=== PATIENT | male | born 1965 | race African-American/Black ===

== ENCOUNTER 2019-07-09 06:46 | Day surgery (SDC) | payer MEDICARE ==
[2019-07-06 11:14] LABS: HEMATOCRIT 44.2 % (42.0-54.0); HEMOGLOBIN 14.6 g/dL (13.5-17.5); MCH 29.4 pg (26.0-34.0); MCV 89.1 fL (80.0-100.0); MEAN PLATELET VOLUME 10.5 fL (7.4-10.4); RBC 4.96 10x6/uL (4.20-6.10); RDW 14.3 % (11.5-14.5); WBC 3.7 10x3/uL (4.8-10.8)
[~2019-07-09] VITALS: Ht 182.9 cm; Wt 107.0 kg
[~2019-07-09 06:46] MED LIST: BACLOFEN10 MG PO; CELEBREX 100 M100 MG PO; MOBIC7.5 MG PO; NORVASC10 MG PO
[2019-07-09 06:54] VITALS: BP 123/83; Ht 182.9 cm; Wt 107.0 kg
[2019-07-09] MEDS ORDERED: HYDROCODON-ACE1 EA10 PO (10:19)
--- NOTE | 2019-07-09 11:45 | NUR ---
PATIENT AMBULATING AROUND ROOM WITHOUT DIZZINESS OR UNSTEADINESS. DISCHARGE INSTRUCTIONS REVIEWED WITH PATIENT, DISCHARGED VIA WHEELCHAIR TO PRIVATE VEHICLE WITH [employer]
--- NOTE | 2019-07-11 08:08 | OP ---
PATIENT NAME: ABE ROSA MEDICAL RECORD: [id number] :65 LOCATION:[facility] ADMISSION DATE: SURGEON: NIKOS DOMINGUEZ MD DATE OF OPERATION: 07/09/2019 PREOPERATIVE DIAGNOSES: Impingement syndrome of the right shoulder, acromioclavicular arthritis, and rotator cuff tear. POSTOPERATIVE DIAGNOSES: 1. Impingement syndrome of the right shoulder, acromioclavicular arthritis. 2. Symptomatic os acromiale. PROCEDURES: 1. Arthroscopic excision of symptomatic os acromiale. 2. Arthroscopic subacromial decompression, acromioplasty and bursectomy. 3. Arthroscopic distal clavicle excision done through separate incision -- 1 cm. SURGEON: Nikos Dominguez MD ANESTHESIA: General. ACCOUNT GENERAL MANAGER: TISHA Riggs INTRAOPERATIVE COMPLICATIONS: None. SUMMARY OF PATHOLOGIC FINDINGS: While the patient did have some partial thickness tearing of the superficial aspect of the rotator cuff, no intraarticular tearing was noted. The patient did not have substantial biceps tendinitis, but the patient did have a loose anterior os acromiale with a very long anterior bone spur. Subacromial decompression including removal of bone spur, removal of the os acromiale and also 1 cm of distal clavicle excision. OPERATIVE SUMMARY IN DETAIL: After obtaining the appropriate preoperative orthopedic surgery consent as well as anesthetic consultation, evaluation and clearance, the patient was brought to the operating room and placed on table in supine position. After adequate general laryngeal mask airway was administered, the patient was placed in left lateral decubitus position. All pressure points were well padded to include down leg peroneal pad as well as axillary roll. The patient was held firmly to the operating table using the vacuum pack suction system. Right upper extremity and shoulder were then prepped and draped in routine sterile fashion. The arm was held in the Arthrex traction boom at 30 degrees of forward flexion, 30 degrees of abduction with 10 pounds of traction laterally. Arthroscopy was established in the glenohumeral joint from the posterior portal. Anterior portal was established in the anterior safe interval. Diagnostic arthroscopy did show some bicipital labral tearing, although minimum at best. Attention was turned to the rotator cuff. No substantial PASTA lesion or tearing was noted. There was some evidence on the articular side of tendinopathy; however, evaluation of the superficial aspect showed no full thickness tearing. Attention was turned to the subacromial space. While on subacromial space, the patient had a very sharp and profound excoriation of the coracoacromial ligament. The coracoacromial ligament and soft tissue underneath the anterior aspect of the acromion were removed. A complete subacromial decompression was performed to the level of the AC joint. At this point, the patient was found to have a os acromiale, which was nonunited. This was removed in its entirety, leaving a very thin shell of bone OPERATIVE REPORT [id number] ABE ROSA to avoid the deltoid injury. Through a separate anterior arthroscopic portal, distal clavicle was excised for 1 cm under direct arthroscopic visualization. The remainder of the patient's profound subacromial bursitis was taken down and the rotator cuff was inspected. At no point, the tearing of the rotator cuff exceeded 50%. Therefore, no fixation was required. Arthroscopy portals were then closed in routine interrupted fashion by TISHA Riggs. Sterile dressings were applied. The patient was awakened and taken to the recovery room in stable condition. All final needle and sponge counts were correct. TRANSINT:[id number] Voice Confirmation ID: [id number] DOCUMENT ID: [id number] ANGELICA SCHMIDT, NIKOS SCOTT at 0808 CC: [id number] DICTATION DATE: 07/09/192018 NEWS COPY EDITOR: 07/10/19 0146 [facility] 07/09/19 [facility] [address] [place] [address]
== END 2019-07-09 12:45 | disposition home or self-care (01) ==
LOC: D.OPS 06:46
PROVIDERS: Anesthesiology; ATTEND Orthopaedic Surgery
DX: M75.41 Impingement syndrome of right shoulder (principal); M19.011 Primary osteoarthritis, right shoulder; M75.101 Unspecified rotator cuff tear or rupture of right shoulder, not specified as traumatic; M25.511 Pain in right shoulder